=== PATIENT | female | born 1995 | race Caucasian/White ===

== ENCOUNTER 2020-02-09 08:31 | Emergency (ER) | payer OTHER, SELFPAY ==
[2020-02-09 08:43] VITALS: BP 133/69; PULSE 91; RESP 18; TEMP 37.2; O2SAT 100
--- NOTE | 2020-02-09 08:46 | ED.FEMALEGU ---
HPI - Female Genitourinary General Chief complaint: Urogenital-Female Stated complaint: Abdominal Pain Time Seen by Provider: 02/09/20 08:52 Source: patient Mode of arrival: ambulatory Limitations: no limitations History of Present Illness HPI Narrative: Shanel Coyne is a 24 yo female with a PMH of SVT, anemia, Raynaud's, ADD, comes to [facility] with complaints of left lower back pain and blood in urine that started last week on . On vacation and did not hydrate well and also was drinking alcohol and noticed having symptoms that started the day after. She denies any vaginal discharge she denies any nausea vomiting or diarrhea, no fever. She has an allergy to penicillin amoxicillin Related Data Home Medications Medication Instructions Recorded Confirmed lisdexamfetamine [Vyvanse] 50 mg PO DAILY 02/09/20 02/09/20 Allergies Allergy/AdvReac Type Severity Reaction Status Date / Time amoxicillin Allergy Hives Verified 02/09/20 08:52 Penicillins Allergy Hives Verified 02/09/20 08:52 Review of Systems Review of Systems: Narrative: CONSTITUTIONAL: Denies fever, chills, sweats. EYES: Denies visual changes, redness, discharge. ENT: Denies rhinorrhea, congestion, sore throat, otalgia. CARDIOVASCULAR: Denies chest pain, palpitations, edema. RESPIRATORY: Denies dyspnea, wheezing, cough GASTROINTESTINAL: Denies abdominal pain, nausea, vomiting, diarrhea. GENITOURINARY: Has dysuria, has hematuria, no abnormal discharge SKIN: Denies rash or itching. NEUROLOGIC: Denies numbness, or focal weakness. PSYCHIATRIC: Denies anxiety or depression. [facility] Past Medical History Medical History ADD (attention deficit disorder) Anemia Facial cellulitis Raynauds disease SVT (supraventricular tachycardia) Family History Family History Other Heart disease Social History Social History (Updated 02/09/20 @ 08:56 by Lucille Alcala CNP) Smoking status: Never smoker Alcohol intake: current Gender identity (if verbalized by the patient): Female Comments At time of signature, I agree with nursing past medical, surgical, social and family history. There is no relevant family history pertinent to the presenting complaint. Exam Narrative: Exam Narrative: GENERAL: This is a well-nourished, well-developed patient, in mild distress. HEAD: normocephalic, atraumatic. EYES: Sclera clear/white. Vision is grossly intact. EARS: External ears normal. Hearing grossly intact. NOSE: External nose normal without nasal discharge, nares without redness, no rhinorrhea. THROAT: Mucous membranes moist, NECK: Neck supple, non-tender CARDIOVASCULAR: Regular rate and rhythm without murmurs, gallops, or rubs. RESPIRATORY: Clear to auscultation. Breath sounds equal bilaterally. No wheezes, rales, or rhonchi. GASTROINTESTINAL: Abdomen soft, non-tender, mild posterior lower right side back pain SKIN: warm, intact with no suspicious lesions or rash, good texture and turgor. NEURO: awake, alert, and oriented to person, place and time. There were no obvious focal neurologic abnormalities. Steady gait EXTREMITIES: Normal range of motion. BACK: Nontender without deformity Course Course Emergency Course: Patient came in complaining of urinary symptoms that started last UA dip 2+ blood 2+ leukocytes started on Bactrim urine sent for culture Follow-up with PCP Vital Signs Vital signs: Vital Signs Temperature 98.9 F 02/09/20 08:43 Pulse Rate 91 02/09/20 08:43 Respiratory Rate 18 02/09/20 08:43 Blood Pressure 133/69 02/09/20 08:43 Pulse Oximetry 100 02/09/20 08:43 Temperature 98.9 F 02/09/20 08:43 Pulse Rate 91 02/09/20 08:43 Respiratory Rate 18 02/09/20 08:43 Blood Pressure 133/69 02/09/20 08:43 Pulse Oximetry 100 02/09/20 08:43 MDM - Female Genitourinary Differential Delaney
== END 2020-02-09 09:03 | disposition home or self-care (01) ==
PROVIDERS: Emergency Provider Nurse Practitioner
DX: N30.01 Acute cystitis with hematuria (principal); I73.00 Raynaud's syndrome without gangrene; F98.8 Other specified behavioral and emotional disorders with onset usually occurring in childhood and adolescence
CPT/HCPCS: 81003; 87077; 87086; 87088; 87186; 99213; G0463

== ENCOUNTER 2020-03-02 14:59 | Emergency (ER) | payer OTHER, SELFPAY ==
[2020-03-02 15:08] VITALS: BP 108/65; PULSE 86; RESP 16; TEMP 36.3; O2SAT 100
--- NOTE | 2020-03-02 15:14 | ED.DENTAL ---
HPI - Dental/Oral General Chief complaint: Dental/Oral Stated complaint: Swollen Lip Time Seen by Provider: 03/02/20 15:14 Source: patient and RN notes reviewed History of Present Illness HPI Narrative: Patient is a 24-year-old female who presents the urgent care with complaints of left sided lower lip swelling. Patient states it started approximately 12 PM, with rapid swelling, and is since seem to remain about the same. Patient denies of any new foods, facial products, new drinks, any new recent detergents,. Patient states that she is ate the same cereal and drink the same milk for her entire life and has not put any new products on her face . Patient states that she has had recent issues with staph infection on her face and was hospitalized. 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 Currently denies any known trauma to the face. Denies of any difficulty swallowing/sore throat/shortness of breath/chest pain. Denies of any fevers. No other acute complaints. No acute distress noted. Patient aware of the plan of care. Some parts of this dictation were generated by voice recognition software and may contain typographical and/or grammatical inaccuracies. Related Data Allergies Allergy/AdvReac Type Severity Reaction Status Date / Time amoxicillin Allergy Hives Verified 03/02/20 15:07 Penicillins Allergy Hives Verified 03/02/20 15:07 Review of Systems Review of Systems: Narrative: CONSTITUTIONAL: Denies fever, chills, or sweats. EYES: Denies visual changes, redness, or discharge. ENT: Denies rhinorrhea, congestion, sore throat, or otalgia. CARDIOVASCULAR: Denies chest pain, palpitations, or edema. RESPIRATORY: Denies cough or dyspnea. GASTROINTESTINAL: Denies abdominal pain, nausea, vomiting, or diarrhea. GENITOURINARY: Denies dysuria or hematuria. SKIN: Denies rash or itching. Reports of left lower lip swelling MUSCULOSKELETAL: Denies back pain, joint pain, or myalgia. NEUROLOGIC: Denies headache, numbness, or weakness. All other systems reviewed are negative, except as documented in HPI. [facility] Past Medical History Medical History ADD (attention deficit disorder) Anemia Facial cellulitis Raynauds disease SVT (supraventricular tachycardia) Family History Family History Other Heart disease Social History Social History (Updated 02/09/20 @ 08:56 by Lucille Alcala CNP) Smoking status: Never smoker Alcohol intake: current Gender identity (if verbalized by the patient): Female Comments At the time of my signature, I reviewed and agree with the nursing past medical, surgical, social, and family history. There is no relevant family history pertinent to the patient complaint. Exam Narrative: Exam Narrative: GENERAL: This is a well-nourished, well-developed patient, in no apparent distress. HEAD: normocephalic, atraumatic. EYES: PERRL. Sclera clear/white. Vision is grossly intact. EARS: External ears normal NOSE: External nose normal with no obvious nasal discharge, nares without redness, no rhinorrhea. THROAT: Mucous membranes moist, posterior pharynx clear. Posterior oropharynx clear. NECK: Neck supple CARDIOVASCULAR: Regular rate and rhythm without murmurs, gallops, or rubs. RESPIRATORY: Clear to auscultation. Breath sounds equal bilaterally. No wheezes, rales, or rhonchi. SKIN: Left lower lip with notable moderate edema localized, without any obvious trauma or injury. Warm, intact with no suspicious lesions or rash, good texture and turgor. NEURO: awake, alert, and oriented to person, place and time. There were no obvious focal neurologic abnormalities. EXTREMITIES: No clubbing, cyanosis, or edema. Course Vital Signs Vital signs: Vital Signs Temperature 97.3 F L 03/02/20 15:08 Pulse Rate 86 03/02/20 15:08 Respiratory Rate 16 03/02/20 15:08
[2020-03-02] MEDS: methylPREDNISolone ACETATE 80 MG/ML VIAL IM (15:28)
== END 2020-03-02 15:38 | disposition home or self-care (01) ==
PROVIDERS: Emergency Provider Nurse Practitioner Family
DX: R22.0 Localized swelling, mass and lump, head (principal); I73.00 Raynaud's syndrome without gangrene
CPT/HCPCS: 96372; 99213; G0463; J1040